=== PATIENT | female | born 1970 | race Caucasian/White ===

== ENCOUNTER → 2024-11-30 09:57 | Outpatient (REF) | payer OTHER, SELFPAY | LOC: HWRAD 09:57 | PROVIDERS: ATTENDING PHYSICIAN Nurse Practitioner Family; FAMILY PHYSICIAN Family Medicine | DX: R10.13 Epigastric pain (principal); M54.2 Cervicalgia; R20.8 Other disturbances of skin sensation | CPT/HCPCS: 72050; 76700 ==